=== PATIENT | female | born 1980 | race Two or more races ===

== ENCOUNTER 2024-01-02 10:27 | Inpatient (IN) | payer BC, OTHER ==
[~2024-01-02] VITALS: Ht 162.6 cm; Wt 93.0 kg
[~2024-01-02 10:27] MED LIST: ADAL40IN2 SC; HYDR200T36 PO
[2024-01-02 11:09] LABS: Basophils # (auto) 0 10 ^3/uL (0-0.2); Basophils % (auto) 0.3 % (0.0-2.0); Eosinophils # (auto) 0 10 ^3/uL (0-0.8); Eosinophils % (auto) 0.2 % (0.0-7.0); Hematocrit 38.6 % (36.0-46.0); Hemoglobin 13.6 g/dL (12.2-16.2); Lymphocytes # (auto) 1.2 10 ^3/uL (0.4-5.4); Lymphocytes % (auto) 11.1 % (10.0-50.0); Mean Corpuscular Hemoglobin 33.2 pg (28.0-32.0); Mean Corpuscular Hgb Conc. 35.2 g/dL (32.0-36.0); Mean Corpuscular Volume 94.5 fL (80.0-100.0); Monocytes # (auto) 0.8 10 ^3/uL (0-1.3); Monocytes % (auto) 7.4 % (0.0-12.0); Neutrophils # (auto) 8.5 10 ^3/uL (1.6-8.6); Platelet Count (auto) 309 10^3/uL (140-450); Red Blood Cells 4.09 10^6/uL (4.0-5.20); Red Cell Distribution Width 13.7 % (11.8-14.3); White Blood Cell 10.6 10^3/uL (4.4-10.8)
[2024-01-02 11:38] LABS: Alanine Aminotransferase 33 U/L (7-40); Albumin 4.2 g/dL (3.2-4.8); Alkaline Phosphatase 68 U/L (46-116); Anion Gap 8 (5-15); Aspartate Aminotransferase 19 U/L (13-40); BUN/Creatinine Ratio 11.5 (10.0-20.0); Bilirubin, Total 1.1 mg/dL (0.2-1.0); Blood Urea Nitrogen 9 mg/dL (9-23); Calcium 9.5 mg/dL (8.7-10.4); Carbon Dioxide 23 mmol/L (20-31); Chloride 106 mmol/L (98-107); Glucose 123 mg/dL (74-106); Potassium 3.9 mmol/L (3.5-5.1); Sodium 137 mmol/L (136-145); Total Protein 7.5 g/dL (5.7-8.2)
[2024-01-02] MEDS: ASPirin 325 MG TAB PO ONE (13:44)
[2024-01-02] MEDS: dilTIAZem 25 MG/5 ML VIAL IV ONE (13:45)
[2024-01-02] MEDS ORDERED: NITROGLYCERIN 0.4 MG SL TAB SL PRN (14:15)
[2024-01-02] MEDS ORDERED: MORPHINE SULFATE INJ 2 MG/ml SYRG IV PRN (14:15)
[2024-01-02] MEDS ORDERED: DOCUSATE SOD 100 MG CAP PO PRN (14:15)
[2024-01-02] MEDS ORDERED: ENOXAPARIN SOD 40 MG/0.4 ML SYRINGE SC SCH (14:15)
[2024-01-02] MEDS ORDERED: ONDANSETRON HCL 4 MG/2 ML VIAL IV PRN (14:15)
[2024-01-02] MEDS: METOPROLOL TARTRATE 25 MG TAB PO ONE (15:30)
[2024-01-02 15:33] VITALS: PULSE 103; RESP 16; O2SAT 98
[2024-01-02] MEDS: SODIUM CHLORIDE 0.9% 1,000 ML IV SCH (15:40)
[2024-01-02] MEDS: ENOXAPARIN SOD 100 MG/1 ML SYRINGE SC SCH (15:40)
[2024-01-02 16:04] LABS: INR 1.02 (0.9-1.15); Prothrombin Time 10.8 sec (9.3-11.8)
[2024-01-02 17:25] LABS: Urine Bacteria FEW /hpf (None Seen); Urine Blood Negative /uL (Negative); Urine Clarity Turbid (Clear); Urine Color Colorless (Yellow); Urine Protein, UAD TRACE (Negative); Urine Specific Gravity 1.008 (1.001-1.035); Urine Urobilinogen Normal (Negative); Urine WBC 4 /hpf (0 - 5); Urine pH 6.5 (5.0-9.0)
[2024-01-02 17:31] LABS: Amphetamine Screen, Urine Neg (NEGATIVE); Barbiturate Scree,Urine Neg (NEGATIVE); Benzodiazephine Screen, Urine Pos (NEGATIVE); Cannabinoid Screen, Urine Pos (NEGATIVE); Cocaine Screen, Urine Neg (NEGATIVE); Opiate Scree,Urine Neg (NEGATIVE); Phencyclidine Screen, Urine Neg (NEGATIVE)
[2024-01-02 19:22] VITALS: PULSE 98; RESP 22; O2SAT 96
[2024-01-02] MEDS: ATORVASTATIN 20 MG TAB PO SCH (21:29)
[2024-01-02] MEDS: METOPROLOL TARTRATE 25 MG TAB PO SCH (21:29)
[2024-01-02 21:46] VITALS: BP 141/72; PULSE 100; RESP 17; RESP 20; TEMP 98.5; O2SAT 97; O2SAT 98
[2024-01-03] VITALS (8 sets, daily range): BP systolic 121–146; BP diastolic 64–86; PULSE 86–97; RESP 18–20; TEMP 97.5–98.5; O2SAT 95–100
[2024-01-03 06:28] LABS: Basophils # (auto) 0 10 ^3/uL (0-0.2); Basophils % (auto) 0.7 % (0.0-2.0); Eosinophils # (auto) 0.2 10 ^3/uL (0-0.8); Eosinophils % (auto) 3.8 % (0.0-7.0); Hematocrit 33.8 % (36.0-46.0); Hemoglobin 11.8 g/dL (12.2-16.2); Lymphocytes # (auto) 1.5 10 ^3/uL (0.4-5.4); Lymphocytes % (auto) 29.7 % (10.0-50.0); Mean Corpuscular Hemoglobin 33.3 pg (28.0-32.0); Mean Corpuscular Volume 95.2 fL (80.0-100.0); Monocytes # (auto) 0.6 10 ^3/uL (0-1.3); Monocytes % (auto) 12.5 % (0.0-12.0); Neutrophils # (auto) 2.7 10 ^3/uL (1.6-8.6); Neutrophils % (auto) 53.3 % (37.0-80.0); Nucleated Red Blood Cells % 0.2 %; Platelet Count (auto) 253 10^3/uL (140-450); Red Blood Cells 3.55 10^6/uL (4.0-5.20); Red Cell Distribution Width 13.3 % (11.8-14.3); White Blood Cell 5.1 10^3/uL (4.4-10.8)
[2024-01-03 06:33] LABS: Alanine Aminotransferase 27 U/L (7-40); Albumin 4.1 g/dL (3.2-4.8); Alkaline Phosphatase 60 U/L (46-116); Anion Gap 9 (5-15); Aspartate Aminotransferase 13 U/L (13-40); BUN/Creatinine Ratio 13.8 (10.0-20.0); Blood Urea Nitrogen 9 mg/dL (9-23); Calcium 9.1 mg/dL (8.7-10.4); Carbon Dioxide 23 mmol/L (20-31); Chloride 108 mmol/L (98-107); Glucose 107 mg/dL (74-106); LDL Cholesterol 50 mg/dL (< 100); Potassium 3.5 mmol/L (3.5-5.1); Sodium 140 mmol/L (136-145); Triglycerides 147 mg/dL (< 150)
[2024-01-03 06:34] LABS: Bilirubin, Total 0.7 mg/dL (0.2-1.0); Cholesterol 131 mg/dL (< 200); HDL Cholesterol 67 mg/dL (40-59); Total Protein 7.1 g/dL (5.7-8.2)
[2024-01-03] MEDS: ASPirin 81 mg TAB PO SCH (09:46)
[2024-01-03] MEDS: POTASSIUM CHL 20 Meq TABLET PO ONE (09:50)
[2024-01-03] MEDS ORDERED: hydrALAZINE HCL 20 MG/ML VL IV PRN (13:45)
[2024-01-03] MEDS: ERGOCALCIFEROL 50,000 UNIT(1.25MG) CAP PO SCH (14:13)
[2024-01-03] MEDS: ATORVASTATIN 20 MG TAB PO SCH (21:37)
[2024-01-03] MEDS ORDERED: APIXABAN 5 MG TAB PO SCH (22:00)
[2024-01-04 01:00] VITALS: BP 140/76; PULSE 78; RESP 18; TEMP 98.2; O2SAT 97
[2024-01-04 05:00] VITALS: BP 134/73; PULSE 82; RESP 18; TEMP 97.5; O2SAT 99
[2024-01-04 06:59] LABS: Chloride 109 mmol/L (98-107); Potassium 3.9 mmol/L (3.5-5.1); Sodium 141 mmol/L (136-145)
[2024-01-04 07:00] LABS: Anion Gap 8 (5-15); Calcium 9.4 mg/dL (8.7-10.4); Carbon Dioxide 24 mmol/L (20-31)
[2024-01-04 07:05] LABS: BUN/Creatinine Ratio 10.6 (10.0-20.0); Blood Urea Nitrogen 7 mg/dL (9-23); Glucose 103 mg/dL (74-106)
[2024-01-04 08:51] VITALS: BP 156/80; PULSE 87; RESP 19; TEMP 97.9; O2SAT 96
[2024-01-04] MEDS ORDERED: MET25T PO (09:44)
[2024-01-04 11:57] VITALS: BP 135/73; PULSE 81; RESP 17; TEMP 99; O2SAT 98
== END 2024-01-04 12:50 | disposition home or self-care (01) | DRG 281 ==
LOC: ER 10:27 → EDBD 10:27 → TELE 14:05 → TELE-WESTW 20:50
PROVIDERS: ADMIT Internal Medicine; ATTEND Internal Medicine
DX: I47.10 Supraventricular tachycardia, unspecified (principal); I50.32 Chronic diastolic (congestive) heart failure; I21.A1 Myocardial infarction type 2; E78.5 Hyperlipidemia, unspecified; M06.9 Rheumatoid arthritis, unspecified; F17.200 Nicotine dependence, unspecified, uncomplicated; I11.0 Hypertensive heart disease with heart failure; E55.9 Vitamin D deficiency, unspecified; E66.812 Obesity, class 2; Z68.35 Body mass index [BMI] 35.0-35.9, adult
CPT/HCPCS: 36415; 71045; 80048; 80053; 80061; 80307; 81001; 82306; 82607; 83036; 83735; 84443; 84484; 84702; 85025; 85379; 85610; 93005; 93306; G0378